=== PATIENT | female | born 1995 | race Caucasian/White ===

== ENCOUNTER 2018-12-07 16:16 | Emergency (ER) | payer MEDICAID ==
[~2018-12-07] VITALS: Ht 149.9 cm; Wt 90.9 kg
[2018-12-07 16:33] VITALS: BP 152/90
[2018-12-07] MEDS ORDERED: ketorolac trometh inj. 60 MG/2 ML VIAL IM ONE (18:40)
[2018-12-07 19:14] LABS: URINE HCG NEGATIVE (NEG)
[2018-12-07 19:25] LABS: CLARITY,URINE CLEAR (Clear); COLOR,URINE YELLOW (Yellow); GLUCOSE, URINE NEGATIVE (Neg); KETONES,URINE NEGATIVE (Neg); LEUKOCYTE ESTERASE ,URINE NEGATIVE (Neg); NITRITES, URINE NEGATIVE (Neg); OCCULT BLOOD,URINE NEGATIVE (Neg); PROTEIN,URINE NEGATIVE (Neg); UA COLLECTION TYPE CLN CATCH MIDSTREAM; UROBILINOGEN,URINE 0.2 E.U/dL (0.2-1.0)
== END 2018-12-07 19:47 | disposition home or self-care (01) ==
LOC: ER 16:17
DX: M54.5 Low back pain (principal)
CPT/HCPCS: 81003; 81025; 96372; 99283; J1885